=== PATIENT | male | born 2000 | race Caucasian/White ===

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

== ENCOUNTER 2020-12-14 20:50 | Emergency (ER) | payer OTHER ==
[~2020-12-14] VITALS: Ht 175.3 cm; Wt 77.3 kg
[2020-12-14 21:01] VITALS: TEMP 97.8
[2020-12-14 21:29] LABS: BASO % 0.6 % (0.0-2.0); EOS # 0.1 (0.0-0.7); GRAN # 3.7 (1.4-6.5); GRAN % 56.9 % (42.2-75.2); HEMATOCRIT 48.9 % (36.0-47.0); HEMOGLOBIN 16.1 g/dl (12.5-16.1); LYMPH # 1.8 (1.2-3.4); LYMPH % 27.6 % (20.0-51.0); MEAN CELL VOLUME 88 fl (80.0-95.0); MEAN CORPUSCULAR HEMOGLOBIN 29 pg (26.0-32.0); MEAN CORPUSCULAR HGB CONC 33 g/dl (33.0-37.0); MEAN PLATELET VOLUME 10.1 fl (7.4-10.4); MONO # 0.8 (0.1-0.6); MONO % 12.7 % (1.7-9.3); PLATELET COUNT 177 K/mm3 (130-400); RED BLOOD COUNT 5.53 M/mm3 (4.20-5.60); REDCELL DISTRIBUTION WIDTH-CV 12.1 % (11.5-14.5)
[2020-12-14 21:31] LABS: ALBUMIN 4.7 gm/dL (3.5-5.0); BILIRUBIN,TOTAL 0.6 mg/dL (0.0-1.0); CALCIUM 9.6 mg/dL (8.4-10.2); CREATININE, serum 0.96 (0.66-1.25); POTASSIUM 3.6 mmol/L (3.4-5.0); TOTAL PROTEIN 8.2 gm/dL (6.4-8.2)
[2020-12-14 23:12] VITALS: BP 120/72; PULSE 75
== END 2020-12-14 23:17 | disposition home or self-care (01) ==
LOC: COL.ER 20:50
PROVIDERS: Nurse Practitioner
DX: B34.9 Viral infection, unspecified (principal); Z20.822 Contact with and (suspected) exposure to COVID-19

== ENCOUNTER 2021-02-05 01:20 | Emergency (ER) | payer SELFPAY ==
[~2021-02-05] VITALS: Ht 175.3 cm; Wt 77.3 kg
[2021-02-05 01:35] VITALS: TEMP 98
[2021-02-05 02:01] LABS: BASO % 0.6 % (0.0-2.0); EOS # 0.1 (0.0-0.7); EOS % 1.1 % (0-4.0); GRAN # 3.6 (1.4-6.5); GRAN % 57.7 % (42.2-75.2); HEMATOCRIT 44.4 % (42.0-52.0); HEMOGLOBIN 14.8 g/dl (13.5-18.0); LYMPH # 2.2 (1.2-3.4); LYMPH % 34.3 % (20.0-51.0); MEAN CELL VOLUME 86 fl (80.0-100.0); MEAN CORPUSCULAR HEMOGLOBIN 29 pg (27.0-31.0); MEAN CORPUSCULAR HGB CONC 33 g/dl (33.0-37.0); MEAN PLATELET VOLUME 9.4 fl (7.4-10.4); MONO # 0.4 (0.1-0.6); MONO % 6.1 % (1.7-9.3); PLATELET COUNT 172 K/mm3 (130-400); RED BLOOD COUNT 5.15 M/mm3 (4.20-5.60); REDCELL DISTRIBUTION WIDTH-CV 12.1 % (11.5-14.5)
[2021-02-05 02:14] LABS: ALANINE AMINOTRANSFERASE 20 U/L (4-49); ALBUMIN 4.5 gm/dL (3.5-5.0); ALKALINE PHOSPHATASE 70 U/L (50-136); ANION GAP 9 mmol/L (7-16); AST,SGOT 31 U/L (15-37); BILIRUBIN,TOTAL 0.6 mg/dL (0.0-1.0); BLOOD UREA NITROGEN 17 mg/dL (9-20); CALCIUM 9.2 mg/dL (8.4-10.2); CARBON DIOXIDE 25 mmol/L (22-30); CHLORIDE 104 mmol/L (98-107); CREATININE, serum 0.92 (0.66-1.25); GLUCOSE 105 mg/dL (74-106); LIPASE 183 U/L (23-300); POTASSIUM 3.4 mmol/L (3.4-5.0); SODIUM 138 mmol/L (137-145); TOTAL PROTEIN 7.5 gm/dL (6.4-8.2)
[2021-02-05 02:15] LABS: C-REACTIVE PROTEIN < 0.5 mg/dL (0.0-0.9)
[2021-02-05 02:31] LABS: ERYTHROCYTE SEDIMENTATION RATE 4 mm/hr (0-15)
[2021-02-05 02:37] LABS: TROPONIN-I < 0.012 ng/mL (0.000-0.035)
[2021-02-05] MEDS ORDERED: NAPROXEN 3375 MG/TAB PO (02:58)
[2021-02-05] MEDS ORDERED: PROTONIX 40MG T40 MG PO (02:58)
[2021-02-05 03:07] VITALS: BP 116/70; PULSE 78
== END 2021-02-05 03:07 | disposition home or self-care (01) ==
LOC: COL.ER 01:20
PROVIDERS: Emergency Medicine
DX: R07.89 Other chest pain (principal); K29.70 Gastritis, unspecified, without bleeding

== ENCOUNTER 2021-02-28 12:13 | Emergency (ER) | payer SELFPAY ==
[~2021-02-28] VITALS: Ht 177.8 cm; Wt 75.0 kg
[~2021-02-28 12:13] MED LIST changes: +NAPROXEN 3375 MG/TAB PO; +PROTONIX 40MG T40 MG PO
[2021-02-28 12:54] VITALS: TEMP 98.1
[2021-02-28 14:03] LABS: BASO % 0.5 % (0.0-2.0); EOS % 0.6 % (0-4.0); GRAN # 4.6 (1.4-6.5); GRAN % 74.5 % (42.2-75.2); HEMATOCRIT 46.3 % (42.0-52.0); HEMOGLOBIN 15.3 g/dl (13.5-18.0); LYMPH # 1.1 (1.2-3.4); LYMPH % 17.8 % (20.0-51.0); MEAN CELL VOLUME 87 fl (80.0-100.0); MEAN CORPUSCULAR HEMOGLOBIN 29 pg (27.0-31.0); MEAN CORPUSCULAR HGB CONC 33 g/dl (33.0-37.0); MEAN PLATELET VOLUME 9.6 fl (7.4-10.4); MONO # 0.4 (0.1-0.6); MONO % 6.3 % (1.7-9.3); PLATELET COUNT 200 K/mm3 (130-400); RED BLOOD COUNT 5.35 M/mm3 (4.20-5.60); REDCELL DISTRIBUTION WIDTH-CV 12.3 % (11.5-14.5)
[2021-02-28 14:11] LABS: ALBUMIN 4.7 gm/dL (3.5-5.0); BILIRUBIN,TOTAL 0.7 mg/dL (0.0-1.0); CALCIUM 9.6 mg/dL (8.4-10.2); CREATININE, serum 0.89 (0.66-1.25); POTASSIUM 3.9 mmol/L (3.4-5.0); TOTAL PROTEIN 7.9 gm/dL (6.4-8.2)
[2021-02-28] MEDS ORDERED: NORCO 325 MG-51 TAB PO ×4 (16:57→17:34)
[2021-02-28 17:50] VITALS: BP 120/73; PULSE 72
== END 2021-02-28 17:50 | disposition home or self-care (01) ==
LOC: COL.ER 12:13
PROVIDERS: Nurse Practitioner Family
DX: S22.31XA Fracture of one rib, right side, initial encounter for closed fracture (principal); M54.2 Cervicalgia; R10.11 Right upper quadrant pain; R51.9 Headache, unspecified; W17.89XA Other fall from one level to another, initial encounter; Y92.61 Building [any] under construction as the place of occurrence of the external cause; Y99.0 Civilian activity done for income or pay
CPT/HCPCS: A9284; J1885

== ENCOUNTER 2021-03-07 15:23 | Emergency (ER) | payer SELFPAY ==
[~2021-03-07] VITALS: Ht 175.3 cm; Wt 72.7 kg
[~2021-03-07 15:23] MED LIST changes: +NORCO 325 MG-51 TAB PO
[2021-03-07 16:27] VITALS: TEMP 98.5
[2021-03-07 20:34] VITALS: BP 116/70; PULSE 68
== END 2021-03-07 20:34 | disposition home or self-care (01) ==
LOC: COL.ER 15:23
DX: F07.81 Postconcussional syndrome (principal); M54.2 Cervicalgia; R07.81 Pleurodynia

== ENCOUNTER 2021-05-11 13:03 | Emergency (ER) | payer SELFPAY ==
[~2021-05-11] VITALS: Ht 175.3 cm; Wt 72.7 kg
[2021-05-11 13:21] VITALS: TEMP 98.7
[2021-05-11 14:30] LABS: BASO # 0.1 (0.0-0.2); BASO % 0.6 % (0.0-2.0); EOS # 0.1 (0.0-0.7); EOS % 0.9 % (0-4.0); GRAN # 5.8 (1.4-6.5); GRAN % 70.4 % (42.2-75.2); HEMATOCRIT 47.8 % (42.0-52.0); HEMOGLOBIN 16.1 g/dl (13.5-18.0); LYMPH # 1.8 (1.2-3.4); LYMPH % 22.3 % (20.0-51.0); MEAN CELL VOLUME 86 fl (80.0-100.0); MEAN CORPUSCULAR HEMOGLOBIN 29 pg (27.0-31.0); MEAN CORPUSCULAR HGB CONC 34 g/dl (33.0-37.0); MEAN PLATELET VOLUME 9.5 fl (7.4-10.4); MONO # 0.4 (0.1-0.6); MONO % 5.4 % (1.7-9.3); PLATELET COUNT 197 K/mm3 (130-400); RED BLOOD COUNT 5.55 M/mm3 (4.20-5.60); REDCELL DISTRIBUTION WIDTH-CV 12.4 % (11.5-14.5)
[2021-05-11 14:38] LABS: ALANINE AMINOTRANSFERASE 16 U/L (4-49); ALBUMIN 4.8 gm/dL (3.5-5.0); ALKALINE PHOSPHATASE 84 U/L (50-136); ANION GAP 12 mmol/L (7-16); AST,SGOT 26 U/L (15-37); BILIRUBIN,TOTAL 0.8 mg/dL (0.0-1.0); BLOOD UREA NITROGEN 15 mg/dL (9-20); CALCIUM 9.8 mg/dL (8.4-10.2); CARBON DIOXIDE 23 mmol/L (22-30); CHLORIDE 103 mmol/L (98-107); CREATININE, serum 0.93 (0.66-1.25); GLUCOSE 96 mg/dL (74-106); POTASSIUM 3.9 mmol/L (3.4-5.0); SODIUM 137 mmol/L (137-145); TOTAL PROTEIN 8.3 gm/dL (6.4-8.2)
[2021-05-11 14:55] LABS: TROPONIN-I < 0.012 ng/mL (0.000-0.035)
[2021-05-11 15:21] LABS: TSH w REFLEX 2.084 uIU/mL (0.350-4.940)
[2021-05-11 15:41] VITALS: BP 120/68; PULSE 70
== END 2021-05-11 15:45 | disposition home or self-care (01) ==
LOC: COL.ER 13:03
PROVIDERS: Physician Assistant
DX: R07.2 Precordial pain (principal)